=== PATIENT | female | born 1990 | race American Indian/Alaskan Native ===

== ENCOUNTER 2017-06-07 08:35 | Emergency (ER) | payer SELFPAY ==
[2017-06-07] MEDS ORDERED: NACL 0.9% 1000 ML 1,000 ML IV ONE (08:48)
[2017-06-07 09:14] LABS: Basophils % (Auto) 0.4 % (0.0-1.8); Eosinophils % (Auto) 1.1 % (0.0-4.3); Hematocrit 34.3 % (30.3-42.9); Hemoglobin 11.6 gm/dl (10.1-14.3); Mean Corpuscular HGB Conc 34 % (30-34); Mean Corpuscular Hemoglobin 30 pg (28-32); Mean Corpuscular Volume 88 fl (79-97); Platelet Count 257 K/mm3 (140-440); Red Cell Distribution Width 16.4 % (13.2-15.2); White Blood Count 6.6 K/mm3 (4.5-11.0)
[2017-06-07 09:24] LABS: INR 1.06 (0.87-1.13)
[2017-06-07 09:25] LABS: Partial Thromboplastin Time 30.7 Sec. (24.2-36.6)
[2017-06-07 09:38] LABS: Alanine Aminotransferase 15 units/L (7-56); Albumin/Globulin Ratio 1.3 %; Alkaline Phosphatase 52 units/L (35-129); Anion Gap 13 mmol/L; Blood Urea Nitrogen 8 mg/dL (7-17); Carbon Dioxide 27 mmol/L (22-30); Chloride 104.6 mmol/L (98-107); Glucose 91 mg/dL (65-100); Lipase 23 units/L (13-60); Potassium 3.8 mmol/L (3.6-5.0); Sodium 141 mmol/L (137-145); Total Protein 7.2 g/dL (6.3-8.2)
[2017-06-07 10:37] LABS: Bilirubin,Urine NEG (Negative); Blood,Urine NEG (Negative); Ketones,Urine NEG (Negative); Leukocyte Esterase,Urine NEG (Negative); Mucus,Urine 3+ /HPF; Nitrite,Urine NEG (Negative); Protein,Urine <15 mg/dL mg/dL (Negative); Urobilinogen,Urine < 2.0 mg/dL (<2.0)
[2017-06-07 18:22] VITALS: BP 107/47
--- NOTE | 2017-06-07 20:18 | Emergency Department Report ---
ED General Adult HPI - General Chief complaint: GI Bleed Stated complaint: TAZED, ABDOMINAL PAIN AND RECTAL BLEEDING Time Seen by Provider: 06/07/17 20:13 Source: patient Mode of arrival: Ambulatory Limitations: No Limitations - History of Present Illness Initial comments: This is a 26-year-old female who presented to the ER with initial complaints of abdominal pain, vaginal discomfort and rectal bleeding. When this provider went to go interview the patient, she stated "didn't you read my record?" I indicated to the patient then that I needed to obtain a history and physical, and that while reading her previous paperwork will be helpful, speaking to the patient is essential. The patient then indicated that she wanted to sign out AGAINST MEDICAL ADVICE and leave. The patient is alert and oriented 3, and exhibits decision-making capacity. The risks of leaving, including , disability, paralysis, loss of quality of life are discussed with the patient, she verbalizes understanding. She is not intoxicated at this time. Severity scale (0 -10): 9 - Related Data Allergies Allergy/AdvReac Type Severity Reaction Status Date / Time amoxicillin trihydrate Allergy Hives Verified 06/07/17 08:48 [From Amoxil] gentamicin Allergy Hives Verified 06/07/17 08:48 Penicillins Allergy Hives Verified 06/07/17 08:48 vancomycin Allergy Hives Verified 06/07/17 08:48 ED Review of Systems ROS: Stated complaint: TAZED, ABDOMINAL PAIN AND RECTAL BLEEDING Other details as noted in HPI Comment: per hpi ED Past Medical Hx - Past Medical History Previous Medical History?: Yes Additional medical history: OVARIAN CYST - Surgical History Past Surgical History?: Yes Additional Surgical History: D&C X2 - Social History Smoking Status: Never Smoker Substance Use Type: None ED Physical Exam - General Limitations: No Limitations General appearance: alert, in no apparent distress - Head Head exam: Present: atraumatic, normocephalic - Eye Eye exam: Present: normal appearance - ENT ENT exam: Present: normal external ear exam - Neck Neck exam: Present: normal inspection - Respiratory Respiratory exam: Absent: respiratory distress - Extremities Exam Extremities exam: Present: normal inspection - Back Exam Back exam: Present: normal inspection, full ROM - Neurological Exam Neurological exam: Present: alert, oriented X3, other (patient moves 4 extremities spontaneously. She is alert and oriented 3. There is no facial droop. Extraocular movements are intact) - Psychiatric Psychiatric exam: Present: agitated, anxious - Skin Skin exam: Present: intact ED Course Vital Signs 06/07/17 06/07/17 06/07/17 08:42 18:21 20:00 Temperature 98 F Pulse Rate 66 65 Respiratory 18 18 18 Rate Blood Pressure 125/83 Blood Pressure 107/47 [Left] O2 Sat by Pulse 100 98 Oximetry ED Medical Decision Making - Lab Data Result diagrams: 06/07/17 09:00 06/07/17 09:00 Vital Signs 06/07/17 06/07/17 08:42 18:21 Temperature 98 F Pulse Rate 66 65 Respiratory 18 18 Rate Blood Pressure 125/83 Blood Pressure 107/47 [Left] O2 Sat by Pulse 100 Oximetry Lab Results 06/07/17 06/07/17 06/07/17 Range/Units 09:00 09:00 09:00 WBC 6.6 (4.5-11.0) K/mm3 RBC 3.90 (3.65-5.03) M/mm3 Hgb 11.6 (10.1-14.3) gm/dl Hct 34.3 (30.3-42.9) % MCV 88 (79-97) fl MCH 30 (28-32) pg MCHC 34 (30-34) % RDW 16.4 H (13.2-15.2) % Plt Count 257 (140-440) K/mm3 Lymph % (Auto) 28.9 (13.4-35.0) % [place] % (Auto) 6.2 (0.0-7.3) % Eos % (Auto) 1.1 (0.0-4.3) % Baso % (Auto) 0.4 (0.0-1.8) % Lymph # 1.9 (1.2-5.4) K/mm3 [place] # 0.4 (0.0-0.8) K/mm3 Eos # 0.1 (0.0-0.4) K/mm3 Baso # 0.0 (0.0-0.1) K/mm3 Seg Neutrophils % 63.4 (40.0-70.0) % Seg Neutrophils # 4.2 (1.8-7.7) K/mm3 PT 14.3 (12.2-14.9) Sec. INR 1.06 (0.87-1.13) APTT 30.7 (24.2-36.6) Sec. Sodium 141 (137-145) mmol/L Potassium 3.8 (3.6-5.0) mmol/L Chloride 104.6 (98-107) mmol/L Carbon Dioxide 27 (22-30) mmol/L Anion Gap 13 mmol/L BUN 8 (7-17) mg/dL Creatinine 0.8 (0.7-1.2) mg/dL Estimated GFR > 60 ml/min BUN/Creatinine Ratio 10.00 % Glucose 91 (65-100) mg/dL Calcium 9.0 (8.4-10.2) mg/dL Total Bilirubin 1.00 (0.1-1.2) mg/dL AST 17 (5-40) units/L ALT 15 (7-56) units/L Alkaline Phosphatase 52 (35-129) units/L Total Protein 7.2 (6.3-8.2) g/dL Albumin 4.0 (3.9-5) g/dL Albumin/Globulin Ratio 1.3 % Lipase 23 (13-60) units/L HCG, Qual (Negative) Urine Color (Yellow) Urine Turbidity (Clear) Urine pH (5.0-7.0) Ur Specific [place] (1.003-1.030) Urine Protein (Negative) mg/dL Urine Glucose (UA) (Negative) mg/dL Urine Ketones (Negative) mg/dL Urine Blood (Negative) Urine Nitrite (Negative) Urine Bilirubin (Negative) Urine Urobilinogen (<2.0) mg/dL Ur Leukocyte Esterase (Negative) Urine WBC (Auto) (0.0-6.0) /HPF Urine RBC (Auto) (0.0-6.0) /HPF U Epithel Cells (Auto) (0-13.0) /HPF Urine Mucus /HPF Blood Type Antibody Screen 06/07/17 06/07/17 06/07/17 Range/Units 09:00 09:00 10:01 WBC (4.5-11.0) K/mm3 RBC (3.65-5.03) M/mm3 Hgb (10.1-14.3) gm/dl Hct (30.3-42.9) % MCV (79-97) fl MCH (28-32) pg MCHC (30-34) % RDW (13.2-15.2) % Plt Count (140-440) K/mm3 Lymph % (Auto) (13.4-35.0) % [place] % (Auto) (0.0-7.3) % Eos % (Auto) (0.0-4.3) % Baso % (Auto) (0.0-1.8) % Lymph # (1.2-5.4) K/mm3 [place] # (0.0-0.8) K/mm3 Eos # (0.0-0.4) K/mm3 Baso # (0.0-0.1) K/mm3 Seg Neutrophils % (40.0-70.0) % Seg Neutrophils # (1.8-7.7) K/mm3 PT (12.2-14.9) Sec. INR (0.87-1.13) APTT (24.2-36.6) Sec. Sodium (137-145) mmol/L Potassium (3.6-5.0) mmol/L Chloride (98-107) mmol/L Carbon Dioxide (22-30) mmol/L Anion Gap mmol/L BUN (7-17) mg/dL Creatinine (0.7-1.2) mg/dL Estimated GFR ml/min BUN/Creatinine Ratio % Glucose (65-100) mg/dL Calcium (8.4-10.2) mg/dL Total Bilirubin (0.1-1.2) mg/dL AST (5-40) units/L ALT (7-56) units/L Alkaline Phosphatase (35-129) units/L Total Protein (6.3-8.2) g/dL Albumin (3.9-5) g/dL Albumin/Globulin Ratio % Lipase (13-60) units/L HCG, Qual Negative (Negative) Urine Color Yellow (Yellow) Urine Turbidity Clear (Clear) Urine pH 5.0 (5.0-7.0) Ur Specific [place] 1.025 (1.003-1.030) Urine Protein <15 mg/dl (Negative) mg/dL Urine Glucose (UA) Neg (Negative) mg/dL Urine Ketones Neg (Negative) mg/dL Urine Blood Neg (Negative) Urine Nitrite Neg (Negative) Urine Bilirubin Neg (Negative) Urine Urobilinogen < 2.0 (<2.0) mg/dL Ur Leukocyte Esterase Neg (Negative) Urine WBC (Auto) 1.0 (0.0-6.0) /HPF Urine RBC (Auto) 1.0 (0.0-6.0) /HPF U Epithel Cells (Auto) 6.0 (0-13.0) /HPF Urine Mucus 3+ /HPF Blood Type O POSITIVE Antibody Screen Negative - Medical Decision Making Differential diagnosis: Gastrointestinal bleed, vaginal bleeding, general medical evaluation after being tased Assessment and plan: 26-year-old female with a triage complaint of abdominal pain, rectal bleeding. The patient is alert and oriented 3, she has a GCS of 15, walks with a steady gait and is clinically sober. The patient is going to sign out AGAINST MEDICAL ADVICE. The risks of leaving, including , disability, paralysis, loss of quality of life were extensively discussed with the patient who verbalized understanding, and is able to exhibit decision- making capacity. Patient understands that she can return to the ER right away if and when she changes her mind. Critical care attestation.: If time is entered above; I have spent that time in minutes in the direct care of this critically ill patient, excluding procedure time. ED Disposition Clinical Impression: Abdominal pain Disposition: [id number] LEFT AGAINST MED ADVICE Is pt being admited?: No Does the pt Need Aspirin: No Condition: Undetermined Instructions: Abdominal Pain (ED) Additional Instructions: As we discussed, you have left the hospital/emergency room AGAINST MEDICAL ADVICE. By leaving, you risked , disability, paralysis, permanent loss of quality of life. The ER is open 24 hours a day, 7 days a week. It never closes. Please return to the emergency room right away if and when you change your mind. If you decide not to return to the emergency room, please follow-up with the listed physician referrals as soon as possible. Referrals: PRIMARY CARE [Primary Care Provider] - 3-5 Days [facility] [Provider Group] - 3-5 Days [facility] [Provider Group] - 3-5 Days [facility] [Provider Group] - 3-5 Days [facility] [Provider Group] - 3-5 Days Forms: Accompanied Note
== END 2017-06-07 20:30 | disposition left against medical advice (07) ==
LOC: ED 08:35
DX: R10.9 Unspecified abdominal pain (principal); K62.5 Hemorrhage of anus and rectum; Z88.1 Allergy status to other antibiotic agents; Z88.0 Allergy status to penicillin
CPT/HCPCS: 36415; 80053; 81001; 83690; 84703; 85025; 85610; 85730; 86850; 86900; 86901; 99284